=== PATIENT | male | born 2000 | race African-American/Black ===

== ENCOUNTER 2024-12-13 11:20 | Emergency (ER) | payer MEDICAID ==
[~2024-12-13] VITALS: Ht 177.8 cm; Wt 82.0 kg
[2024-12-13 11:27] VITALS: O2SAT 97
[2024-12-13 14:05] VITALS: BP 104/53; PULSE 65; RESP 14; TEMP 36.8; O2SAT 97
== END 2024-12-13 14:06 | disposition home or self-care (01) ==
LOC: ER 11:20
DX: M25.531 Pain in right wrist (principal)
CPT/HCPCS: 73110; 73130; 99284